=== PATIENT | male | born 1985 | race African-American/Black ===

== ENCOUNTER 2017-01-04 22:14 | Emergency (ER) | payer SELFPAY ==
[~2017-01-04] VITALS: Ht 170.2 cm; Wt 67.0 kg
[2017-01-04] MEDS ORDERED: KETOROLAC 60MG/2ML VIAL IM ONE (23:00)
[2017-01-04] MEDS ORDERED: TETANUS, DIPHTHERIA, PERTUSSIS VAC/PF 0.5ML (>7YR OLD) IM ONE (23:00)
[2017-01-04] MEDS ORDERED: BACITRACIN ZINC OINT UDPKT TOP ONE (23:15)
[2017-01-04] MEDS ORDERED: HYDROCODONE/ACETAMINOPHEN 5/325MG TABLET PO ONE (23:45)
[2017-01-04 23:54] VITALS: BP 119/73
== END 2017-01-05 00:03 | disposition home or self-care (01) ==
LOC: ER 22:15
DX: T23.051A Burn of unspecified degree of right palm, initial encounter (principal); T31.0 Burns involving less than 10% of body surface; J45.909 Unspecified asthma, uncomplicated; X15.8XXA Contact with other hot household appliances, initial encounter; Y93.89 Activity, other specified; Y92.010 Kitchen of single-family (private) house as the place of occurrence of the external cause
CPT/HCPCS: 90471; 90715; 96372; 99284; J1885; Z7610; A4565

== ENCOUNTER 2018-01-20 17:05 | Emergency (ER) | payer SELFPAY ==
[~2018-01-20] VITALS: Ht 180.3 cm; Wt 85.0 kg
[2018-01-21] MEDS ORDERED: IBUPROFEN 600MG TABLET PO ONE (02:45)
[2018-01-21] MEDS ORDERED: BACITRACIN ZINC OINT UDPKT TOP ONE (02:45)
[2018-01-21] MEDS ORDERED: LIDOCAINE HCL 1% 20ML VIAL (Pyxis) INJ MC ONE (02:45)
[2018-01-21] MEDS ORDERED: TETANUS, DIPHTHERIA, PERTUSSIS VAC/PF 0.5ML (>7YR OLD) IM ONE (02:45)
[2018-01-21 03:26] VITALS: BP 118/61
[2018-01-21] MEDS ORDERED: LIDOCAINE HCL/PF 1% 10 MG/ML 5ML VIAL IJ SCH (04:42)
== END 2018-01-21 05:49 | disposition home or self-care (01) ==
LOC: ER 23:40
DX: S61.411A Laceration without foreign body of right hand, initial encounter (principal); J45.909 Unspecified asthma, uncomplicated; W26.0XXA Contact with knife, initial encounter; Y93.89 Activity, other specified; Y92.9 Unspecified place or not applicable
CPT/HCPCS: 12001; 73130; 90471; 90715; 99284; J3490; X7700; Z7610

== ENCOUNTER 2019-09-05 22:36 | Emergency (ER) | payer SELFPAY ==
[~2019-09-05] VITALS: Ht 180.3 cm; Wt 86.5 kg
[2019-09-06] MEDS ORDERED: ALBUTEROL (0.083%) 2.5MG/3ML NEB HHN STA (01:11)
[2019-09-06] MEDS ORDERED: PREDNISONE 20MG TABLET PO STA (01:11)
[2019-09-06] MEDS ORDERED: IPRATROPIUM BROMIDE (0.02%) 0.5MG/2.5ML NEB HHN STA (01:11)
[2019-09-06 02:07] LABS: CHLORIDE 108 mEq/L (98-107)
[2019-09-06 02:11] LABS: MEAN PLATELET VOLUME 7.7 fl (7.4-10.4)
[2019-09-06 02:15] LABS: HEMATOCRIT. 44.1 % (42.0-52.0); HEMOGLOBIN. 15.3 g/dL (14.0-18.0); MEAN CORPUSCULAR VOLUME 86.2 fL (80.0-94.0); PLATELET 228 x1000/uL (130-400); RED BLOOD CELL COUNT 5.11 mill/uL (4.7-6.1); RED CELL DISTRIBUTION WIDTH 13.1 % (11.6-14.6)
[2019-09-06 03:51] VITALS: BP 115/64
[2019-09-06 05:07] LABS: PLATELET ESTIMATE NORMAL
== END 2019-09-06 03:54 | disposition home or self-care (01) ==
LOC: ER 22:36
DX: J45.909 Unspecified asthma, uncomplicated (principal); M32.9 Systemic lupus erythematosus, unspecified; D72.829 Elevated white blood cell count, unspecified; F12.10 Cannabis abuse, uncomplicated
CPT/HCPCS: 36415; 71045; 80053; 83605; 83880; 84145; 84484; 85025; 85379; 87040; 93005; 94640; 99284; J7512; J7611; Z7610